=== PATIENT | female | born 1945 | race Caucasian/White ===

== ENCOUNTER → 2016-10-03 | Outpatient (CLI) | payer MEDICARE, BC ==
[~2016-10-03] MED LIST: ALEVE220 MG PO; AMILORIDE HCL/H1 TAB PO; ASPIRIN E.C. 8181 MG PO; BLOOD PRESSURE MED; CEPHALEXIN500 M1 PO; MOTRIN 600600 MG/TAB PO
== END ==
LOC: MC.RAD 09:46
DX: Z12.31 Encounter for screening mammogram for malignant neoplasm of breast (principal)

== ENCOUNTER → 2017-10-22 | Outpatient (CLI) | payer MEDICARE, BC | LOC: MC.RAD 08:32 | DX: Z12.31 Encounter for screening mammogram for malignant neoplasm of breast (principal) ==

== ENCOUNTER → 2018-02-05 | Outpatient (CLI) | payer MEDICARE, BC | LOC: COL.RAD 11:11 | DX: I26.99 Other pulmonary embolism without acute cor pulmonale (principal) | CPT/HCPCS: Q9967 ==

== ENCOUNTER → 2018-02-05 | Outpatient (CLI) | payer MEDICARE, BC | LOC: COL.VAS 15:00 | DX: I26.99 Other pulmonary embolism without acute cor pulmonale (principal); I82.432 Acute embolism and thrombosis of left popliteal vein; I82.442 Acute embolism and thrombosis of left tibial vein ==

== ENCOUNTER → 2018-04-26 | Outpatient (CLI) | payer MEDICARE, BC | LOC: COL.VAS 09:45 | DX: I82.531 Chronic embolism and thrombosis of right popliteal vein (principal) ==

== ENCOUNTER 2018-08-08 16:31 | Emergency (ER) | payer MEDICARE, BC ==
[~2018-08-08] VITALS: Ht 180.3 cm; Wt 97.3 kg
[2018-08-08 16:37] VITALS: TEMP 98.8
[2018-08-08] MEDS ORDERED: ELIQUIS 5MG PO (16:57)
[2018-08-08] MEDS ORDERED: CALCIUM CARBON650 M2 PO (16:58)
[2018-08-08] MEDS ORDERED: MULTIPLE VITAMI1 CAP PO (16:58)
[2018-08-08 17:13] LABS: BASO % 0.4 % (0.0-2.0); EOS # 0.2 (0.0-0.7); EOS % 2.4 % (0-4.0); GRAN # 4.4 (1.4-6.5); GRAN % 65.5 % (42.2-75.2); HEMATOCRIT 41.1 % (37.0-47.0); HEMOGLOBIN 13.9 g/dl (12.5-16.0); LYMPH # 1.6 (1.2-3.4); LYMPH % 23.8 % (20.0-51.0); MEAN CELL VOLUME 93 fl (80.0-100.0); MEAN CORPUSCULAR HEMOGLOBIN 32 pg (27.0-31.0); MEAN CORPUSCULAR HGB CONC 34 g/dl (33.0-37.0); MEAN PLATELET VOLUME 10.4 fl (7.4-10.4); MONO # 0.5 (0.1-0.6); MONO % 7.6 % (1.7-9.3); PLATELET COUNT 254 K/mm3 (130-400); REDCELL DISTRIBUTION WIDTH-CV 13.2 % (11.5-14.5)
[2018-08-08 17:26] LABS: BILIRUBIN,TOTAL 0.4 mg/dL (0.0-1.0); CALCIUM 9.8 mg/dL (8.4-10.2); CREATININE, serum 0.85 (0.52-1.25); POTASSIUM 3.6 mmol/L (3.4-5.0); TOTAL PROTEIN 7.2 gm/dL (6.4-8.2)
[2018-08-08 18:58] VITALS: BP 146/95; PULSE 77
== END 2018-08-08 18:59 | disposition home or self-care (01) ==
LOC: COL.ER 16:31
PROVIDERS: Emergency Medicine
DX: M79.661 Pain in right lower leg (principal); I10 Essential (primary) hypertension; Z79.01 Long term (current) use of anticoagulants; Z86.718 Personal history of other venous thrombosis and embolism

== ENCOUNTER 2018-10-31 08:54 | Emergency (ER) | payer MEDICARE, BC ==
[~2018-10-31] VITALS: Ht 180.3 cm; Wt 97.3 kg
[~2018-10-31 08:54] MED LIST changes: +CALCIUM CARBON650 M2 PO; +ELIQUIS 5MG PO; +MULTIPLE VITAMI1 CAP PO
[2018-10-31 09:00] VITALS: TEMP 98.8
[2018-10-31 10:25] LABS: BASO % 0.3 % (0.0-2.0); EOS % 0.1 % (0-4.0); GRAN % 87.2 % (42.2-75.2); HEMATOCRIT 43.2 % (37.0-47.0); HEMOGLOBIN 14.3 g/dl (12.5-16.0); LYMPH # 0.8 (1.2-3.4); LYMPH % 7.5 % (20.0-51.0); MEAN CELL VOLUME 95 fl (80.0-100.0); MEAN CORPUSCULAR HEMOGLOBIN 31 pg (27.0-31.0); MEAN CORPUSCULAR HGB CONC 33 g/dl (33.0-37.0); MEAN PLATELET VOLUME 10.2 fl (7.4-10.4); MONO # 0.5 (0.1-0.6); MONO % 4.7 % (1.7-9.3); PLATELET COUNT 242 K/mm3 (130-400); RED BLOOD COUNT 4.56 M/mm3 (4.10-5.30); REDCELL DISTRIBUTION WIDTH-CV 13.1 % (11.5-14.5)
[2018-10-31 10:31] LABS: INR 1.3 (0.8-3.0); PROTHROMBIN TIME 15.2 SECONDS (9.7-12.8)
[2018-10-31 10:37] LABS: ALBUMIN 4.2 gm/dL (3.5-5.0); BILIRUBIN,TOTAL 0.7 mg/dL (0.0-1.0); CALCIUM 9.5 mg/dL (8.4-10.2); CREATININE, serum 0.56 (0.52-1.25); POTASSIUM 3.5 mmol/L (3.4-5.0); TOTAL PROTEIN 7.6 gm/dL (6.4-8.2)
[2018-10-31] MEDS ORDERED: NORCO 325 MG-51 TAB PO (11:26)
[2018-10-31 12:07] VITALS: BP 125/56; PULSE 58
== END 2018-10-31 12:15 | disposition home or self-care (01) ==
LOC: COL.ER 08:54
PROVIDERS: Nurse Practitioner Primary Care
DX: S22.42XA Multiple fractures of ribs, left side, initial encounter for closed fracture (principal); I10 Essential (primary) hypertension; Z79.01 Long term (current) use of anticoagulants; Z86.711 Personal history of pulmonary embolism; W01.198A Fall on same level from slipping, tripping and stumbling with subsequent striking against other object, initial encounter; Y92.009 Unspecified place in unspecified non-institutional (private) residence as the place of occurrence of the external cause
CPT/HCPCS: A9284; J2270; Q9967

== ENCOUNTER → 2018-12-03 | Outpatient (CLI) | payer MEDICARE, BC ==
[~2018-12-03] MED LIST changes: +NORCO 325 MG-51 TAB PO
== END ==
LOC: MC.RAD 11-02 08:15
DX: Z12.31 Encounter for screening mammogram for malignant neoplasm of breast (principal)

== ENCOUNTER → 2019-12-14 | Outpatient (CLI) | payer MEDICARE, BC | LOC: MC.RAD 09:45 | DX: Z12.31 Encounter for screening mammogram for malignant neoplasm of breast (principal) ==

== ENCOUNTER 2020-03-02 12:12 | Inpatient (IN) | payer MEDICARE, BC ==
[~2020-03-02] VITALS: Ht 177.8 cm; Wt 99.5 kg
[2020-03-02] MEDS ORDERED: AMILORIDE/HCTZ1 TAB PO (12:20)
[2020-03-02] MEDS ORDERED: ONE-A-DAY ESSE1 EACH PO (12:21)
[2020-03-02 13:39] LABS: BASO % 0.1 % (0.0-2.0); EOS % 0.1 % (0-4.0); GRAN % 89.7 % (42.2-75.2); HEMATOCRIT 40.9 % (37.0-47.0); HEMOGLOBIN 13.8 g/dl (12.5-16.0); LYMPH # 0.8 (1.2-3.4); LYMPH % 5.4 % (20.0-51.0); MEAN CELL VOLUME 95 fl (80.0-100.0); MEAN CORPUSCULAR HEMOGLOBIN 32 pg (27.0-31.0); MEAN CORPUSCULAR HGB CONC 34 g/dl (33.0-37.0); MEAN PLATELET VOLUME 9.8 fl (7.4-10.4); MONO # 0.6 (0.1-0.6); MONO % 4.4 % (1.7-9.3); PLATELET COUNT 235 K/mm3 (130-400); RED BLOOD COUNT 4.29 M/mm3 (4.10-5.30); REDCELL DISTRIBUTION WIDTH-CV 12.9 % (11.5-14.5)
[2020-03-02 14:04] LABS: ALBUMIN 4.2 gm/dL (3.5-5.0); BILIRUBIN,TOTAL 0.7 mg/dL (0.0-1.0); CALCIUM 9.7 mg/dL (8.4-10.2); CREATININE, serum 0.7 (0.52-1.25); POTASSIUM 3.9 mmol/L (3.4-5.0); TOTAL PROTEIN 7.3 gm/dL (6.4-8.2)
[2020-03-02 14:17] VITALS: BP 116/75; TEMP 97.9
[2020-03-02 14:35] LABS: INR 1.1 (0.8-3.0); PROTHROMBIN TIME 12.7 SECONDS (9.7-12.8)
[2020-03-02 16:00] VITALS: BP 134/78; PULSE 80; TEMP 97.8
--- NOTE | 2020-03-02 18:12 | NUR ---
Patient sitting up in bed finishing up eatting dinner. A&Ox4. VSS. IV CDI. Patient reporting pain in right knee 11/10. Pain medication given as requested. Son at the bedside. Right knee in an immobilizer and elevated on a pillow. No further needs expressed from the patient. Call light within reach
[2020-03-02 19:19] VITALS: BP 132/69; PULSE 90; TEMP 97.9
--- NOTE | 2020-03-02 20:00 | NUR ---
PT RESTING IN BED. READJUSTED IMMOBILIZER. ELEVATED ON MORE PILLOWS. RT KNEE SWOLLEN, GGOD SENSATION AND PULSES STRONG. HAVING PAIN TONIGHT. SEE MAR FOR NORCO 1 TAB PO GIVEN. ELIQUIS ON HOLD. RECEIVING LOVENEX. 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 ATTEMPTED TO GET UA- MISSED BEDPAN. CHANGED LINENS. CALL LIGHT IN REACH.
[2020-03-03] VITALS (7 sets, daily range): BP systolic 113–154; BP diastolic 46–63; PULSE 65–86; TEMP 97.3–99.1
--- NOTE | 2020-03-03 | NUR ---
PT C/O INCREASED UNRELIEVED PAIN RLE. CALLED Nitesh CONTEH. SEE NEW ORDERS. SEE MAR.
[2020-03-03 06:47] LABS: BASO % 0.5 % (0.0-2.0); EOS # 0.1 (0.0-0.7); EOS % 1.8 % (0-4.0); GRAN # 6.1 (1.4-6.5); GRAN % 77.7 % (42.2-75.2); HEMOGLOBIN 12.2 g/dl (12.5-16.0); LYMPH # 1.1 (1.2-3.4); LYMPH % 13.4 % (20.0-51.0); MEAN CELL VOLUME 95 fl (80.0-100.0); MEAN CORPUSCULAR HEMOGLOBIN 32 pg (27.0-31.0); MEAN CORPUSCULAR HGB CONC 34 g/dl (33.0-37.0); MEAN PLATELET VOLUME 10.2 fl (7.4-10.4); MONO # 0.5 (0.1-0.6); MONO % 6.5 % (1.7-9.3); PLATELET COUNT 184 K/mm3 (130-400); RED BLOOD COUNT 3.78 M/mm3 (4.10-5.30)
[2020-03-03 06:48] LABS: HEMATOCRIT 35.8 % (37.0-47.0)
[2020-03-03 06:54] LABS: CALCIUM 8.6 mg/dL (8.4-10.2); CREATININE, serum 0.65 (0.52-1.25)
--- NOTE | 2020-03-03 08:10 | NUR ---
Patient lying in bed with eyes open watching TV. Alert and oriented x3. Rates pain 7-8/10 in right leg, describes as burning/throb. Administer Ada as prescribed per patient request. Pedal pulse in right leg 1+ and left leg 2+. Repositioned right leg in bed. Ice applied to right knee per patient request. Immobilizer is on right leg. Patient denies additional needs.
--- NOTE | 2020-03-03 09:30 | NUR ---
Received in report that the patient can be incontinent of urine and when put on bedpan ws not able to urinate in bedpan, that the urine went all over bed. No UA has been obtained. Patient says that she feels like her bladder is not emptying as it should. There are orders in system for catheter insertion. Anahi area cleaned with three castile wipes and then three betadine swabs. 16fr toledo inserted using sterile technique. Return of clear yellow urine into tubing and bag. Securement device applied to left thigh and tubing secured. Approx 600ml clear yellow urine noted in catheter bag. Patient says that her bladder feels better. Patient tolerates procedure without difficulty. Denies additional needs at this time.
[2020-03-03 10:32] LABS: COLLECTION METHOD CLEAN CATCH
--- NOTE | 2020-03-03 10:44 | NUR ---
Rating pain 8/10 in right leg and requests pain medication. Administer Morphine as prescribed. Reposition leg as well. Denies additional needs at this time.
[2020-03-03 10:45] LABS: MUCOUS Present /lpf; SQUAMOUS EPITHELIAL None Seen /hpf; URINE BACTERIA None Seen /hpf; URINE RBC 0-2 /hpf
[2020-03-03 10:52] LABS: PH 7 (5-8); URINE APPEARANCE Clear; URINE BILIRUBIN Negative (NEGATIVE); URINE BLOOD Negative (NEGATIVE); URINE COLOR Yellow; URINE GLUCOSE Negative (NEGATIVE); URINE KETONE Trace (NEGATIVE); URINE LEUKOCYTE ESTERASE Negative (NEGATIVE); URINE NITRATE Negative (NEGATIVE); URINE PROTEIN(semi-quant) Negative (NEGATIVE); URINE UROBILINOGEN Negative (NEGATIVE)
--- NOTE | 2020-03-03 11:31 | NUR ---
Lying in bed watching TV. Rates pain in right leg 11/10. Feels like the Morphine helped for a short amount of time. Explain we will bring in her Sullivan when she is due for it. Patient explains they are going to try to get her to a senior living for therapy by Thursday and she hopes the pain will be able to be controlled there. Reassurance provided to the patient. Denies additional needs at this time.
--- NOTE | 2020-03-03 12:34 | NUR ---
Rating pain 8/10 to right knee. Administer [place] as prescribed per patient request. Denies additional needs.
--- NOTE | 2020-03-03 14:43 | NUR ---
Plan: To go to a SNF, [facility] or [facility]. Assessment: SW met with patient about her care and DC plan. Patient reports that she resides in [facility] and has two sons apart of her care. Gus and grandson . Patient reports that her pcp is Dr. Levin but is working with Dr. Issa for this stay. Patient indicated that she will follow-up with Dr. Issa. Obtains medications at [facility] with some difficulty in obtaining her oquist. Has POA, Son Gus. Patient indicated that she is not using any DME, SNF, or HHS at this time. Patient indicated that she may need DME when going to SNF. Action: SW sent referrals to SNF 1. [facility] and 2. [facility]. Educated patient on services and community supports available to her.Will continue to follow for care.
--- NOTE | 2020-03-03 16:36 | NUR ---
Sitting up in bed watching TV. Son at bedside visiting with patient. Patient explains that when PT came in earlier she was able to stand at the side of the bed but was not able to pivot. Reassurance and encouragement provided to the patient. Rates pain 7/10 in right leg, describes as throbbing, would like pain medication. Will administer [place] as prescribed. Denies additional needs.
--- NOTE | 2020-03-03 18:06 | NUR ---
Lying in bed with eyes open talking on phone and watching TV. Son has just left. Patient says that her pain is better, rates a 5/10 in right leg. Ice pack is to right knee/thigh. Patient denies additional needs or concerns at this time.
--- NOTE | 2020-03-03 22:18 | NUR ---
PT RESTING IN BED. A&O. O2 1L N/C CONTINUOUS. IMMOBILIZER REAPPLIED. PT WORRIED ABOUT PAIN CONTROL THRU THE HS. PAIN PLAN AGREED TO. CALL LIGHT IN REACH. BED ALARM SET.
[2020-03-04 03:38] VITALS: BP 124/58; PULSE 82; TEMP 98
[2020-03-04 07:16] LABS: BASO % 0.4 % (0.0-2.0); EOS # 0.3 (0.0-0.7); EOS % 3.6 % (0-4.0); GRAN # 6.1 (1.4-6.5); GRAN % 80.4 % (42.2-75.2); HEMOGLOBIN 11.5 g/dl (12.5-16.0); LYMPH # 0.6 (1.2-3.4); LYMPH % 8.2 % (20.0-51.0); MEAN CELL VOLUME 95 fl (80.0-100.0); MEAN CORPUSCULAR HEMOGLOBIN 32 pg (27.0-31.0); MEAN CORPUSCULAR HGB CONC 34 g/dl (33.0-37.0); MEAN PLATELET VOLUME 10.9 fl (7.4-10.4); MONO # 0.5 (0.1-0.6); PLATELET COUNT 172 K/mm3 (130-400); RED BLOOD COUNT 3.62 M/mm3 (4.10-5.30); REDCELL DISTRIBUTION WIDTH-CV 12.6 % (11.5-14.5)
[2020-03-04 07:24] LABS: HEMATOCRIT 34.3 % (37.0-47.0)
[2020-03-04 07:33] LABS: CALCIUM 8.2 mg/dL (8.4-10.2); CREATININE, serum 0.54 (0.52-1.25)
[2020-03-04 08:16] VITALS: BP 112/50; PULSE 84; TEMP 99.2
--- NOTE | 2020-03-04 09:50 | NUR ---
PT RESTING IN BED. PAIN CONTROLLED WITH PO MEDS AT THIS TIME. MENA CATHETER TO DD WITH CLEAR YELLOW URINE. NO KINKS OR TWISTS IN MENA. BAG SUSPENDED FROM BED OFF FLOOR. NO FREE WATER FLUID RESTRICT. PLAN ON PLACEMENT TOMORROW FOR SNF.
[2020-03-04 11:12] VITALS: BP 103/49; PULSE 74; TEMP 99.1
[2020-03-04 16:01] VITALS: BP 119/57; PULSE 76; TEMP 98.4
--- NOTE | 2020-03-04 18:40 | NUR ---
Report received from LAVELLE [place]. Pt sitting up in chair. Assisted pt back to bed x3 assist with walker and gait belt, tolerated well. Ice packs placed on RLE and SCDs placed on LLE. Reports pain 5/10 at this time, declines pain medications for now. Call light in reach. Will continue to monitor.
[2020-03-04 19:54] VITALS: BP 127/55; PULSE 99; TEMP 99.9
--- NOTE | 2020-03-04 20:40 | NUR ---
Shift assessment completed. Pt lying in bed. Knee immobilizer in place to RLE with ice packs on and leg elevated on pillow. Elena in place with clear yellow output. Reports severe pain to right leg, IV morphine administered per order. Heart rate and rhythm regular, lungs clear to auscultation, A&Ox4. Denies other needs at this time. Will continue to monitor.
[2020-03-04 23:57] VITALS: BP 121/41; PULSE 90; TEMP 98.8
[2020-03-05 04:00] VITALS: BP 121/51; PULSE 80; TEMP 97.7
--- NOTE | 2020-03-05 05:08 | NUR ---
Pt rested in bed, sleeping for short periods. IV morphine administered once for breakthrough pain. PO [place] administered once. Ice pack in place to RLE for duration of night with leg elevated on pillow and knee immobilizer in place. Elena with 1175 mls clear yellow output this shift.
[2020-03-05 06:45] LABS: BASO % 0.7 % (0.0-2.0); EOS # 0.3 (0.0-0.7); EOS % 6.2 % (0-4.0); GRAN # 3.4 (1.4-6.5); GRAN % 62.7 % (42.2-75.2); HEMOGLOBIN 11.6 g/dl (12.5-16.0); LYMPH # 1.1 (1.2-3.4); LYMPH % 20.3 % (20.0-51.0); MEAN CELL VOLUME 96 fl (80.0-100.0); MEAN CORPUSCULAR HEMOGLOBIN 32 pg (27.0-31.0); MEAN CORPUSCULAR HGB CONC 33 g/dl (33.0-37.0); MEAN PLATELET VOLUME 10.5 fl (7.4-10.4); MONO # 0.5 (0.1-0.6); MONO % 9.7 % (1.7-9.3); PLATELET COUNT 188 K/mm3 (130-400); RED BLOOD COUNT 3.64 M/mm3 (4.10-5.30); REDCELL DISTRIBUTION WIDTH-CV 12.7 % (11.5-14.5)
[2020-03-05 06:53] LABS: HEMATOCRIT 34.9 % (37.0-47.0)
[2020-03-05 07:02] LABS: CALCIUM 8.3 mg/dL (8.4-10.2); CREATININE, serum 0.6 (0.52-1.25); POTASSIUM 4.2 mmol/L (3.4-5.0)
[2020-03-05 07:30] VITALS: BP 139/54; PULSE 88; TEMP 98
--- NOTE | 2020-03-05 08:07 | NUR ---
Patient resting in bed. Patient did well with breakfast. Her pain increased. [place] per request. Patient reports no stool since admitted. Notified hospitalist for order for stool softners & prune juice provided. Cms intact to RLE. Brace on. readjusted brace for comfort. Patient getting on her computer to start work, very alert & oriented. Will monitor.
[2020-03-05 11:19] VITALS: BP 133/42; PULSE 92; TEMP 97.7
--- NOTE | 2020-03-05 12:21 | NUR ---
First visit from the digital advertising analyst. No needs right now.
--- NOTE | 2020-03-05 15:47 | NUR ---
Patient resting again in bed after working with therapy. notifed & order to Dc toledo obtained. Patient tolerated toledo removal. Patient pain better after [place]. Right leg brace loosen for comfort while restingin bed.
[2020-03-05 16:15] VITALS: BP 141/55; PULSE 78; TEMP 98.1
--- NOTE | 2020-03-05 16:43 | NUR ---
Retail Training Manager followed up with patient about referrals and patient advised her first preference is [facility] SW followed up with Piyush at [facility] who advised they are still reviewing referral as they had an issue with their fax machine. SW contacted Mónica at [facility] who advised they can accept, but that Medicare will only cover a short stay with patient's non weight bearing status. Once patient no longer qualified for skilled, out of pocket would be $373 per day. Cost of [facility] private pay would be $257-$267 per day. SW met with patient to provide update on non weight bearing status and payer source. Patient states she isn't sure she can afford this. Patient wonders out loud if she could just pay her neighbor to provide care for her in the home instead of going to SNF. Patient also inquires about [place] [facility]. Patient would like referral sent to [facility] and states she will talk to her son later about her options. SW contacted Candace [facility] Director to give referral. SW consulted Jaja Financial Counselor to inquire about Medicaid. SW contacted patient's son, Emil (ph#[phone]) to provide update. SW advised that patient would have to private pay once Medicare will no longer cover skilled. SW advised referrals have been sent to [facility], [facility], and [facility]. Emil to speak with patient this evening about options. SW will continue to follow.
--- NOTE | 2020-03-05 17:58 | NUR ---
Patient sitting up in bed eating dinner. She has been on her computer most of the day and or her phone. Patient frustrated on discharge planning. She is trying to figure out what to do, she can not afford to pay out of pocket. Pain managed at this time. brace on
[2020-03-05 19:11] VITALS: BP 121/50; PULSE 87; TEMP 97.4
[2020-03-05 23:39] VITALS: BP 109/43; PULSE 79; TEMP 98.3
[2020-03-06 04:00] VITALS: BP 135/49; PULSE 88; TEMP 98.5
[2020-03-06 06:54] LABS: BASO % 0.3 % (0.0-2.0); EOS # 0.3 (0.0-0.7); EOS % 5.7 % (0-4.0); GRAN % 67.4 % (42.2-75.2); HEMATOCRIT 34.9 % (37.0-47.0); HEMOGLOBIN 11.5 g/dl (12.5-16.0); LYMPH % 16.7 % (20.0-51.0); MEAN CELL VOLUME 96 fl (80.0-100.0); MEAN CORPUSCULAR HEMOGLOBIN 32 pg (27.0-31.0); MEAN CORPUSCULAR HGB CONC 33 g/dl (33.0-37.0); MEAN PLATELET VOLUME 10.2 fl (7.4-10.4); MONO # 0.6 (0.1-0.6); MONO % 9.6 % (1.7-9.3); PLATELET COUNT 211 K/mm3 (130-400); RED BLOOD COUNT 3.62 M/mm3 (4.10-5.30)
[2020-03-06 07:05] LABS: CALCIUM 8.6 mg/dL (8.4-10.2); CREATININE, serum 0.53 (0.52-1.25); POTASSIUM 4.4 mmol/L (3.4-5.0)
--- NOTE | 2020-03-06 07:10 | NUR ---
Patient lying in bed with eyes open. Minimal pain at this time. Patient has immobilizer on right leg. Removed oxygen at this time so that we can reassess oxygen levels on room air as the patient is not normally on oxygen. Rolled patient in bed and bottom is red. Discussed this with the patient and importance of repositioning. Patient expresses frustration that both nursing homes are going to charge her a lot of money for rehab and she is not able to afford this. Patient hopeful to get in to [facility] but if she has to go home she has a plan set up. Respiratory in room to assess oxygen level and patient is at 92% on room air. Patient denies additional needs or concerns at this time.
[2020-03-06 07:15] VITALS: BP 121/49; PULSE 75; TEMP 98
--- NOTE | 2020-03-06 09:30 | NUR ---
Shift assessment as charted. Alert and oriented. INT to L hand CDI. Up to use commode and sit in recliner. Two assist, pt was unsteady, immobilizer to right lower extremity in place. SCD removed. Instructed to CDB & use IS. Pt has no complaints of pain or discomfort at this time.
--- NOTE | 2020-03-06 10:00 | NUR ---
Sitting in recliner. Rates pain 3-4/10 in right leg. Denies needing pain medication at this time. Provided gatorade to patient. Patient is still waiting on update of where she is suppose to go. Explain that we will see what the social service agency director is able to find out. Patient denies additional needs at this time.
[2020-03-06 10:45] VITALS: BP 135/65; PULSE 90; TEMP 98.4
--- NOTE | 2020-03-06 12:25 | NUR ---
Patient done with lunch and would like to use BSC. Assited to BSC with assist of two. Patient able to pivot to get on commode. Patient voids and has formed stool. Patient would like to get in bed. Provided kailey care for the patient. Patient assisted to bed with assist of two and walker. Assisted to comfortable position. Patient denies additional needs at this time.
[2020-03-06] MEDS ORDERED: NORCO 325 MG-51 TAB PO (13:02)
[2020-03-06] MEDS ORDERED: COLACE 100100 MG/CAP PO (13:03)
[2020-03-06] MEDS ORDERED: TYLENOL 325MG325 MG PO (13:03)
[2020-03-06] MEDS ORDERED: LEADER CLE17 GM/Dose PO (13:04)
[2020-03-06 13:12] VITALS: BP 135/65; PULSE 90; TEMP 98.4
--- NOTE | 2020-03-06 14:31 | NUR ---
Steam Station Supervisor faxed clinical updates to [facility] and [facility]. Patient is ready for discharge today. Piyush at [facility] advised they are able to accept patient today. SHAYLEE met with patient who is agreeable to discharge to [facility]. Patient was informed by Candace [facility] Director that [facility] could not accept her at this time but was open to rescreening her after her time at SNF if needed. SHAYLEE talked with patient about Medicaid. Patient states she owns [address] acres of land and has a trust, so she is not interested in applying for Medicaid at this time. SHAYLEE again spoke with patient about transitioning to private pay once her skilled benefit is up as she is non weight bearing. Patient states she is hopeful she will be able to go home once her skilled benefit is up. SHAYLEE contacted Piyush and provided this update. Piyush verbalized understanding and states they will work with patient on different options including possible moving patient over to Assisted Living as that is a less expensive option. Piyush confirms again that they will accept patient this afternoon and set transport time for 1515. SHAYLEE provided transport time to patient who states she will text her son about transport. Patient states her son is at work so requests SW not call him. SHAYLEE read IM form aloud to patient who verbalized understanding and gave SW permission to sign on her behalf. SHAYLEE placed original in chart and gave copy to patient. SHAYLEE faxed discharge orders and break in stay letter to Piyush at [facility]. No additional needs at this time.
--- NOTE | 2020-03-06 15:09 | NUR ---
Report called to Jeff nurse at [facility]. Patient is dressed and ready for pick up driver.
--- NOTE | 2020-03-06 15:41 | NUR ---
[facility] here to berry picker patient. Transferred to wheelchair with assist of two and use of walker. Patient assisted out with all belongings by MONIK Rausch.
== END 2020-03-06 15:41 | DRG 533 ==
LOC: COL.ER 12:12 → SURG 13:06 → EDBEDREQ 13:25 → SURG 14:16
PROVIDERS: Emergency Medicine; Physician Assistant; Student in an Organized Health Care Education/Training Program; ADMIT Internal Medicine
DX: S72.401A Unspecified fracture of lower end of right femur, initial encounter for closed fracture (principal); J96.01 Acute respiratory failure with hypoxia; E87.1 Hypo-osmolality and hyponatremia; J98.11 Atelectasis; I10 Essential (primary) hypertension; M17.11 Unilateral primary osteoarthritis, right knee; Z86.718 Personal history of other venous thrombosis and embolism; Z86.711 Personal history of pulmonary embolism; Z79.01 Long term (current) use of anticoagulants; W01.0XXA Fall on same level from slipping, tripping and stumbling without subsequent striking against object, initial encounter
CPT/HCPCS: 99222-AI; 99232-AI; 99239; A9284; J1650; J2270; J3010; L1846

== ENCOUNTER → 2020-03-22 | Outpatient (CLI) | payer MEDICARE, BC ==
[~2020-03-22] MED LIST changes: +AMILORIDE/HCTZ1 TAB PO; +COLACE 100100 MG/CAP PO; +LEADER CLE17 GM/Dose PO; +ONE-A-DAY ESSE1 EACH PO; +TYLENOL 325MG325 MG PO
== END ==
LOC: COL.VAS 09:20
DX: M79.89 Other specified soft tissue disorders (principal)

== ENCOUNTER → 2020-04-06 | Outpatient (CLI) | payer MEDICARE, BC ==
[2020-04-06 15:28] LABS: COLLECTION METHOD CLEAN CATCH
[2020-04-06 15:45] LABS: BUDDING YEAST Present /hpf; PH 6 (5-8); SQUAMOUS EPITHELIAL 0-2 /hpf; URINE APPEARANCE Cloudy; URINE BACTERIA Rare /hpf; URINE BILIRUBIN Negative (NEGATIVE); URINE BLOOD 1+ (NEGATIVE); URINE COLOR Yellow; URINE GLUCOSE Negative (NEGATIVE); URINE KETONE Negative (NEGATIVE); URINE LEUKOCYTE ESTERASE 3+ (NEGATIVE); URINE NITRATE Positive (NEGATIVE); URINE PROTEIN(semi-quant) 1+ (NEGATIVE); URINE UROBILINOGEN Negative (NEGATIVE); URINE WBC >50 /hpf
== END ==
LOC: ZLAB.STJ 15:13
PROVIDERS: Family Medicine
DX: N39.0 Urinary tract infection, site not specified (principal)

== ENCOUNTER 2020-08-03 11:15 | Outpatient (RCR) | payer MEDICARE, BC | END 2020-08-23 | disposition home or self-care (01) | LOC: MKS.ESL.PT | DX: M25.561 Pain in right knee (principal) | CPT/HCPCS: G0283-GP ==

== ENCOUNTER 2020-08-03 18:42 | Emergency (ER) | payer MEDICARE, BC ==
[~2020-08-03] VITALS: Ht 177.8 cm; Wt 97.7 kg
[2020-08-03 18:47] VITALS: TEMP 98.3
[2020-08-03 20:16] VITALS: BP 149/75; PULSE 62
== END 2020-08-03 20:27 | disposition home or self-care (01) ==
LOC: COL.ER 18:42
DX: M25.561 Pain in right knee (principal); I10 Essential (primary) hypertension; Z79.01 Long term (current) use of anticoagulants; Z86.711 Personal history of pulmonary embolism; W01.198A Fall on same level from slipping, tripping and stumbling with subsequent striking against other object, initial encounter

== ENCOUNTER 2020-08-28 13:15 | Outpatient (RCR) | payer SELFPAY | END 2020-08-29 09:26 | disposition home or self-care (01) | LOC: MKS.ESL.PT 13:15 | DX: S72.401A Unspecified fracture of lower end of right femur, initial encounter for closed fracture (principal) ==

== ENCOUNTER 2020-08-29 08:42 | Outpatient (RCR) | payer MEDICARE, BC | END 2020-08-29 09:26 | disposition home or self-care (01) | LOC: MKS.ESL.PT 08:42 | DX: S72.401A Unspecified fracture of lower end of right femur, initial encounter for closed fracture (principal) ==

== ENCOUNTER 2021-11-26 12:33 | Outpatient (RCR) | payer MEDICARE, BC ==
[~2021-11-26] VITALS: Ht 177.8 cm; Wt 100.0 kg
[2021-11-26 13:00] VITALS: BP 109/69; PULSE 77; TEMP 98
[2021-11-26] MEDS ORDERED: CARTIA XT120 MG PO (13:18)
== END 2021-11-26 13:30 | disposition home or self-care (01) ==
LOC: EUO 12:33
DX: M81.0 Age-related osteoporosis without current pathological fracture (principal)
CPT/HCPCS: J3111

== ENCOUNTER 2021-12-24 12:34 | Outpatient (RCR) | payer MEDICARE, BC ==
[~2021-12-24] VITALS: Ht 177.8 cm; Wt 100.4 kg
[~2021-12-24 12:34] MED LIST changes: +CARTIA XT120 MG PO
[2021-12-24 13:24] VITALS: BP 131/85; PULSE 81; TEMP 99
[2021-12-24] MEDS ORDERED: EVENITY (2210 MG/2.3 SQ (14:06)
== END 2021-12-24 14:26 ==
LOC: EUO 12:34
DX: M81.0 Age-related osteoporosis without current pathological fracture (principal)
CPT/HCPCS: J3111

== ENCOUNTER 2022-01-21 09:35 | Outpatient (CLI) | payer MEDICARE, BC ==
[~2022-01-21] VITALS: Ht 177.8 cm; Wt 100.3 kg
[~2022-01-21 09:35] MED LIST changes: +CALCIUM 600 PLU1 TAB PO; -CALCIUM CARBON650 M2 PO; +ELIQUIS 2.5 PO; -ELIQUIS 5MG PO; +EVENITY (2210 MG/2.3 SQ
[2022-01-21 10:10] VITALS: BP 133/73; PULSE 86; TEMP 97.6
== END 2022-01-21 10:56 | disposition home or self-care (01) ==
LOC: EUO 09:35
DX: M81.0 Age-related osteoporosis without current pathological fracture (principal)
CPT/HCPCS: J3111